=== PATIENT | female | born 1940 | race Caucasian/White ===

== ENCOUNTER 2023-12-03 06:08 | Day surgery (SDC) | payer OTHER ==
[2023-10-30 14:25] VITALS: BMI 26.6
[2023-12-03] MEDS ORDERED: ceFAZolin SODIUM 1 GM VIAL ONE ×2 (07:14→07:20)
[2023-12-03] MEDS ORDERED: TETRACAINE 0.5% OPHTH SOLN 2 ML BOTTLE ONE (07:14)
[2023-12-03] MEDS ORDERED: ERYTHROMYCIN 0.5% OPHTHALMIC OINTMENT 3.5 GM TUBE ONE (07:14)
[2023-12-03] MEDS ORDERED: POVIDONE-IODINE 5% OPHTHALMIC PREP 30 ML SOLUTION ONE (07:14)
[2023-12-03] MEDS ORDERED: LIDOCAINE 1%/EPI 1:100000 (20 ML MULTI DOSE VIAL) ONE (07:14)
[2023-12-03] MEDS ORDERED: PROPOFOL 40 ML ONE (07:20)
[2023-12-03] MEDS ORDERED: MIDAZOLAM HCL 2 MG/2 ML SINGLE DOSE VIAL ONE (07:20)
[2023-12-03] MEDS ORDERED: ONDANSETRON 4 MG/2 ML VIAL ONE (09:02)
[2023-12-03] MEDS ORDERED: LACTATED RINGERS SOLUTION 1,000 ML IV SCH (09:15)
[2023-12-03] MEDS ORDERED: ACETAMINOPHEN INJECTION 100 ML IVPB ONE (09:15)
[2023-12-03] MEDS: ACETAMINOPHEN 1000 MG/100 ML BAG IVPB ONE (09:20)
[2023-12-03 12:07] VITALS: RESP 16; TEMP 97.1
[2023-12-03 12:17] VITALS: BP 150/79; PULSE 74
== END 2023-12-03 12:05 | disposition home or self-care (01) ==
LOC: FASU 06:08
PROVIDERS: ATTEND Ophthalmology
PROC: 08SN0ZZ Reposition Right Upper Eyelid, Open Approach (ICD-10-PCS; 2023-12-03)
PROC: 08SP0ZZ Reposition Left Upper Eyelid, Open Approach (ICD-10-PCS; principal; 2023-12-03 08:08)
DX: H02.403 Unspecified ptosis of bilateral eyelids (principal)
CPT/HCPCS: 88304-TC; 94760; J0131